=== PATIENT | male | born 1985 | race African-American/Black ===

== ENCOUNTER 2024-04-29 18:23 | Emergency (ER) | payer MEDICAID, SELFPAY ==
[2024-04-29 18:37] VITALS: BP 141/90; PULSE 71; TEMP 36.8; O2SAT 100; BMI 19.8
[2024-04-29 18:48] VITALS: O2SAT 100
--- NOTE | 2024-04-29 19:17 | US_ITS ---
The [address] [address] Patient Name: ELIZA KUMAR MRN: [id number] date: 1985 Sex: M Assigned Patient Location: ED.MAIN Current Patient Location: Accession/Order Number: [id number] Exam Date: 04/29/2024 20:00 Report Date: 04/29/2024 21:28 At the request of: NADEGE MAZARIEGOS Procedure: US scrotum doppler EXAM: US Duplex Arterial/Venous of the Testicles, Complete CLINICAL INDICATION: pain TECHNIQUE: Real-time duplex ultrasound scan of the scrotal contents integrating B-mode two-dimensional vascular structure, Doppler spectral analysis and color flow Doppler imaging. COMPARISON: No relevant prior studies available. FINDINGS: RIGHT TESTICLE: Unremarkable. Normal blood flow on color and spectral Doppler imaging. LEFT TESTICLE: Subjective increase vascularity in the left testicle raising the possibility of orchitis. SCROTUM: There is small left varicocele. US/US scrotum doppler IMPRESSION: Subjective increase vascularity in the left testicle raising the possibility of orchitis. No testicular mass. Electronically authenticated by: BABAR ROUSE Date: 04/29/2024 21:28
--- NOTE | 2024-04-29 19:18 | ED_ITS ---
HPI - Male Genitourinary General Chief complaint: Urogenital-Male Stated complaint: LOWER ABDOMINAL PAIN Time Seen by Provider: 04/29/24 18:57 Source: patient Mode of arrival: walk-in Limitations: no limitations History of Present Illness HPI Narrative: 38-year-old male presents for pain and an uncomfortable feeling in his testicles, worse on the left than the right. It seems to come and go and has had it for few days. He states that this happened about 20 years ago and he got it checked out but he does not think they found anything serious. No dysuria or hematuria. Related Data Allergies Allergy/AdvReac Type Severity Reaction Status Date / Time No Known Drug Allergies Allergy Verified 04/29/24 18:36 Review of Systems ROS Narrative A ten point review of systems is negative except as noted above. Exam Narrative Exam Narrative: Nurses note and vital signs reviewed and patient is not hypoxic. General: The patient appears well and in no apparent distress. Patient is resting comfortably on cart. Skin: Warm, dry, no pallor noted. There is no rash noted. Head: Normocephalic, atraumatic Eye: Normal conjunctiva, no drainage Ears, Nose, Mouth, and Throat: oral mucosa is moist. Nares patent. Cardiovascular: Regular Rate and Rhythm Respiratory: Patient is in no distress, no accessory muscle use, lungs are vanessa ar to auscultation, no wheezing, rales or rhonchi Back: non-tender GI: Soft and nontender : No scrotal masses or swelling. Musculoskeletal: The patient has no evidence of calf tenderness, no pitting edema, symmetrical pulses noted bilaterally Neurological: A&O, normal speech Psychiatric: Cooperative Constitutional Vital Signs, click to edit/add: Last Vital Signs Temp 98.3 F 04/29/24 18:37 Pulse 71 04/29/24 18:37 Resp 16 04/29/24 18:37 BP 141/90 04/29/24 18:37 Pulse Ox 100 04/29/24 18:48 O2 Del Method Room Air 04/29/24 18:48 Course Vital Signs Vital signs: Vital Signs Temperature 98.3 F 04/29/24 18:37 Pulse Rate 71 04/29/24 18:37 Respiratory Rate 16 04/29/24 18:37 Blood Pressure 141/90 04/29/24 18:37 Pulse Oximetry 100 04/29/24 18:37 Oxygen Delivery Method Room Air 04/29/24 18:37 Temperature 98.3 F 04/29/24 18:37 Pulse Rate 71 04/29/24 18:37 Respiratory Rate 16 04/29/24 18:37 Blood Pressure 141/90 04/29/24 18:37 Pulse Oximetry 100 04/29/24 18:48 Oxygen Delivery Method Room Air 04/29/24 18:48 MDM - Male Genitourinary MDM Narrative Medical decision making narrative: Ultrasound appears to show orchitis. He was given IM Rocephin and prescribed doxycycline and was referred to urologist. No evidence of torsion. Treatment diagnosis and follow-up were discussed with the patient. Differential Diagnosis Differential diagnosis: Likely other (UTI, orchitis, epididymal orchitis, torsion, STD) Lab Data Attestation: I reviewed the patient's lab results. Labs: Lab Results 04/29/24 04/29/24 Range/Units 18:40 18:42 WBC 9.3 (4.0-11.0) 10^3/uL RBC 5.16 (4.70-6.10) 10^6/uL Hgb 16.0 (14.0-18.0) g/dL Hct 47.0 (42.0-54.0) % MCV 91.1 (80.0-94.0) fL MCH 31.0 (25.9-34.0) pg MCHC 34.0 (29.9-35.2) g/dL RDW 13.4 (11.0-15.0) % Plt Count 251 (150-450) 10^3/uL MPV 10.7 (9.5-13.5) fL Neut % (Auto) 45.5 (43.0-75.0) % Lymph % (Auto) 43.9 (20.5-60.0) % [place] % (Auto) 7.7 (1.7-12.0) % Eos % (Auto) 2.3 (0.9-7.0) % Baso % (Auto) 0.4 (0.2-2.0) % Neut # (Auto) 4.2 (1.4-6.5) 10^3/uL Lymph # (Auto) 4.1 H (1.2-3.8) 10^3/uL [place] # (Auto) 0.7 (0.3-0.8) 10^3/uL Eos # (Auto) 0.2 (0.0-0.7) 10^3/uL Baso # (Auto) 0.0 (0.0-0.1) 10^3/uL Abs Immat Gran (auto) 0.02 (0.00-0.03) 10^3/uL Imm/Tot Granulo (auto) 0.2 (0.0-0.5) % Sodium 139 (136-145) mmol/L Potassium 3.5 (3.5-5.1) mmol/L Chloride 100 (98-107) mmol/L Carbon Dioxide 32.8 H (21.0-32.0) mmol/L Anion Gap 9.7 BUN 15.0 (7.0-18.0) mg/dL Creatinine 1.10 (0.70-1.30) mg/dL Est GFR ( Amer) >60 (>=60 mL/min/1.73m^2) Est GFR (Non-Af Amer) >60 (>=60 mL/min/1.73m^2) BUN/Creatinine Ratio 13.6 Glucose 101 (74-106) mg/dL Calcium 9.3 (8.5-10.1) mg/dL Urine Color Yellow (YELLOW) Urine Clarity Clear (CLEAR) Urine pH 6.0 (5.0-9.0) Ur Specific [place] 1.015 (1.005-1.025) Urine Protein Negative (NEG/TRACE) mg/dL Urine Glucose (UA) Negative (NEGATIVE) mg/dL Urine Ketones Negative (NEGATIVE) mg/dL Urine Occult Blood Negative (NEGATIVE) Urine Nitrite Negative (NEGATIVE) Urine Bilirubin Negative (NEGATIVE) Urine Urobilinogen >=8.0 (0.2-1.0) EU/dL Ur Leukocyte Esterase Negative (NEGATIVE) Urine RBC None seen (0-2) #/HPF Urine WBC 0-2 A (NONE SEEN) #/HPF Ur Squamous Epith Cells None seen (NONE/RARE) #/LPF Urine Crystals None seen (None Seen) #/HPF Urine Bacteria None seen (NONE SEEN) #/HPF Urine Casts None seen (NONE SEEN) #/LPF Urine Mucus None seen (NONE SEEN) Discharge Plan Discharge Chief Complaint: Urogenital-Male Clinical Impression: Acute orchitis Patient Disposition: Home, Self-Care Time of Disposition Decision: 21:08 Condition: Good Mode of Transportation: Private Vehicle Print Language: Bengali Instructions: Orchitis (ED) Referrals: Physician,Non-Staff, [Physician] - 1 week Casa Hendrix MD [Physician] - 1 week
[2024-04-29 19:26] LABS: Basophils Percent Auto 0.4 % (0.2-2.0); Eosinophils Absolute Auto 0.2 10^3/uL (0.0-0.7); Eosinophils Percent Auto 2.3 % (0.9-7.0); Immature Granulocytes Abs Auto 0.02 10^3/uL (0.00-0.03); Immature Granulocytes Pct Auto 0.2 % (0.0-0.5); Lymphocytes Absolute Auto 4.1 10^3/uL (1.2-3.8); Lymphocytes Percent Auto 43.9 % (20.5-60.0); Mean Corpuscular Volume 91.1 fL (80.0-94.0); Mean Platelet Volume 10.7 fL (9.5-13.5); Monocytes Absolute Auto 0.7 10^3/uL (0.3-0.8); Monocytes Percent Auto 7.7 % (1.7-12.0); Neutrophils Absolute Auto 4.2 10^3/uL (1.4-6.5); Neutrophils Percent Auto 45.5 % (43.0-75.0); Platelet Count 251 10^3/uL (150-450); Red Blood Count 5.16 10^6/uL (4.70-6.10); Red Cell Distribution Width 13.4 % (11.0-15.0); White Blood Count 9.3 10^3/uL (4.0-11.0)
[2024-04-29 19:30] LABS: Bilirubin Urine NEGATIVE (NEGATIVE); Blood Urine NEGATIVE (NEGATIVE); Clarity Urine CLEAR (CLEAR); Color Urine YELLOW (YELLOW); Glucose Urine UA NEGATIVE (NEGATIVE); Ketones Urine NEGATIVE (NEGATIVE); Leukocyte Esterase Urine NEGATIVE (NEGATIVE); Nitrite Urine NEGATIVE (NEGATIVE); Protein Urine NEGATIVE (NEG/TRACE); Specific Gravity Urine 1.015 (1.005-1.025); Urobilinogen Urine >=8.0 EU/dL (0.2-1.0)
[2024-04-29 19:31] LABS: Anion Gap 9.7; BUN Creatinine Ratio 13.6; Calcium 9.3 mg/dL (8.5-10.1); Carbon Dioxide 32.8 mmol/L (21.0-32.0); Chloride 100 mmol/L (98-107); Estimated GFR (African America >60 (>=60 mL/min/1.73m^2); Estimated GFR (Non-African Ame >60 (>=60 mL/min/1.73m^2); Glucose 101 mg/dL (74-106); Potassium 3.5 mmol/L (3.5-5.1); Sodium 139 mmol/L (136-145)
[2024-04-29 19:38] LABS: Bacteria Urine NONE SEEN #/HPF (NONE SEEN); Mucus Urine NONE SEEN (NONE SEEN); RBC Urine NONE SEEN #/HPF (0-2); Squamous Epithelial Cell Urine NONE SEEN #/LPF (NONE/RARE); WBC Urine 0-2 #/HPF (NONE SEEN)
[2024-04-29 19:39] LABS: Cast Seen? NONE SEEN #/LPF (NONE SEEN); Crystals Seen? None Seen #/HPF (None Seen)
[2024-04-29] MEDS: CEFTRIAXONE 500 MG VIAL IM (21:18)
[2024-05-02 21:07] LABS: Neisseria gonorrhoeae, NAA Negative (Negative)
== END 2024-04-29 21:25 | disposition home or self-care (01) ==
PROVIDERS: Emergency Provider Emergency Medicine
DX: N45.2 Orchitis (principal)
CPT/HCPCS: 36415; 76870; 80048; 81001; 85025; 87491; 87591; 93976; 96372; 99285; J0696